=== PATIENT | male | born 1985 | race Caucasian/White ===

== ENCOUNTER 2018-01-12 17:51 | Emergency (ER) | payer OTHER ==
[~2018-01-12] VITALS: Ht 180.3 cm; Wt 117.0 kg
[2018-01-12 18:10] VITALS: BP 168/87; PULSE 87; RESP 16; TEMP 99.1; O2SAT 97
[2018-01-12] MEDS ORDERED: VIT D (18:41)
[2018-01-12] MEDS ORDERED: HERPES MED (18:41)
--- NOTE | 2018-01-12 19:32 | PD ---
HPI Chief Complaint: Headache Time Seen by Provider: 19:17 Travel History International Travel<30 days: No Contact w/Intl Traveler<30days: No Traveled to known affect area: No History of Present Illness HPI 32-year-old male presents to the emergency room for medical clearance after an incident that occurred 4 days ago. 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 Shortly afterward, he developed a moderate headache that lasted the rest of the night. States the headache was resolved by the following morning. He did not have to take any medications for it. He denies any significant coughing, chest pain, shortness of breath, or sore throat. He has not had any symptoms since then. Patient is asymptomatic at this time. PFSH Past Medical History Diminished Hearing: No Medical other: Yes (HERPES) Tetanus Vaccination: < 5 Years Influenza Vaccination: Yes Past Surgical History Surgical History: No Previous Surgery Social History Alcohol Use: Yes (SOCIAL) Tobacco Use: No Substance Use: No Allergies-Medications (Allergen,Severity, Reaction): Coded Allergies: Penicillins (Verified Allergy, Unknown, 01/12/18) Reported Meds & Prescriptions Reported Meds & Active Scripts Active Reported [Vit D] [Herpes Med] Review of Systems Except as stated in HPI: all other systems reviewed are Neg Physical Exam Narrative GENERAL: Well-nourished, well-developed male in no acute distress. Afebrile. Ambulatory. SKIN: Focused skin assessment warm/dry. HEAD: Normocephalic. EYES: No scleral icterus. No injection or drainage. NECK: Supple, trachea midline. No JVD or lymphadenopathy. ENT: Mucosa pink and moist. Mild erythema without exudates. No uvular edema. No uvular, palatal, or tonsillar deviation. Airway patent. Nasal turbinates appear normal without nasal blood, purulent drainage or septal hematoma. CARDIOVASCULAR: Regular rate and rhythm without murmurs, gallops, or rubs. RESPIRATORY: Breath sounds equal bilaterally. No accessory muscle use. No crackles, rales, wheezes, or rhonchi. Data Data Last Documented VS Vital Signs Date Time Temp Pulse Resp B/P (MAP) Pulse Ox O2 Delivery O2 Flow Rate FiO2 01/12/18 18:37 Room Air 01/12/18 18:10 99.1 87 16 168/87 (114) 97 MDM Medical Decision Making Medical Screen Exam Complete: Yes Emergency Medical Condition: Yes Medical Record Reviewed: Yes Differential Diagnosis URI, chemical exposure, cough, sore throat Narrative Course 32-year-old otherwise healthy male presents to the emergency room for evaluation and medical clearance. He had unknown chemical exposure 4 days ago while cleaning the bus. It caused him to have a significant headache at that time which resolved with sleep and has not returned. He has had no other symptoms. Patient is afebrile and well-appearing in the emergency room. Vital signs stable. Lung sounds clear and equal bilaterally. Pharynx is erythematous but patent. Patient is in no acute distress. He may have inhaled bleach fumes which caused his headache but I do not sequela. Patient was reassured and told to follow-up with a primary care physician or return for worsening symptoms. He understands and agrees to plan. Diagnosis Primary Impression: Chemical exposure Referrals: Primary Care Physician Additional Instructions: Follow-up with a primary care physician. Return to the emergency room as needed. Disposition: 01 DISCHARGE HOME Condition: Stable Elli Joyner Jan 12, 2018 19:32
== END 2018-01-12 19:45 | disposition home or self-care (01) ==
LOC: PHEFT 17:51
DX: Z77.098 Contact with and (suspected) exposure to other hazardous, chiefly nonmedicinal, chemicals (principal); Y93.E5 Activity, floor mopping and cleaning; Y92.811 Bus as the place of occurrence of the external cause; Z88.0 Allergy status to penicillin
CPT/HCPCS: 99281